=== PATIENT | male | born 1970 | race Caucasian/White ===

== ENCOUNTER 2016-10-30 15:06 | Emergency (ER) | payer BC ==
[~2016-10-30] VITALS: Ht 182.9 cm; Wt 115.1 kg
[2016-10-30] MEDS ORDERED: LORTAB 5-325 M1 EACH PO (16:30)
[2016-10-30] MEDS ORDERED: COLACE100 MG PO (16:30)
[2016-10-30] MEDS ORDERED: BACLOFEN10 MG PO (16:30)
[2016-10-30 17:10] VITALS: BP 129/87
== END 2016-10-30 17:13 | disposition home or self-care (01) ==
LOC: EME → EDBD 15:06 → EME 15:06
DX: S82.041A Displaced comminuted fracture of right patella, initial encounter for closed fracture (principal); W01.198A Fall on same level from slipping, tripping and stumbling with subsequent striking against other object, initial encounter; F17.200 Nicotine dependence, unspecified, uncomplicated
CPT/HCPCS: 73564; 99281; 99284; J1885